=== PATIENT | male | born 1990 ===

== ENCOUNTER 2024-06-20 18:32 | Emergency (ER) | payer BC ==
[2024-06-20] MEDS ORDERED: Sodium Chloride 0.9% 10 ML Syringe FLUSH PRN (18:35)
[2024-06-20] MEDS ORDERED: fentaNYL 100 MCG/2 ML SDV IVPUSH ONE (18:35)
[2024-06-20 18:44] LABS: BASOPHILS ABSOLUTE AUTO 0.04 K/uL (0.00-0.20); BASOPHILS PERCENT AUTO 0.5 % (0.0-2.0); EOSINOPHILS ABSOLUTE AUTO 0.48 K/uL (0.00-0.50); EOSINOPHILS PERCENT AUTO 5.8 % (0.0-5.0); HEMOGLOBIN 13.1 g/dL (13.1-16.8); LYMPHOCYTES ABSOLUTE AUTO 2.61 K/uL (0.50-3.50); LYMPHOCYTES PERCENT AUTO 31.7 % (10.0-50.0); MEAN CORPUSCULAR HEMOGLOBIN 30.3 pg (28.2-33.3); MEAN CORPUSCULAR HGB CONC 33.6 g/dL (31.7-36.0); MEAN CORPUSCULAR VOLUME 90.3 fL (84.0-98.0); MONOCYTES ABSOLUTE AUTO 0.65 K/uL (0.00-1.00); MONOCYTES PERCENT AUTO 7.9 % (2.0-14.0); NEUTROPHILS ABSOLUTE AUTO 4.45 K/uL (1.40-7.00); NEUTROPHILS PERCENT AUTO 54.1 % (45.0-80.0); PLATELET COUNT,PLT 310 K/uL (150-350); RED BLOOD CELL COUNT 4.32 M/uL (4.33-5.41); WHITE BLOOD CELL COUNT,WBC 8.2 K/uL (4.0-10.2)
[2024-06-20 19:02] LABS: ALANINE AMINOTRANSFERASE,ALT 37 U/L (12-78); ALBUMIN 3.8 g/dL (3.4-5.0); ALKALINE PHOSPHATASE 83 IU/L (46-116); ANION GAP 9.6 meq/L (7-15); ASPARTATE AMNIOTRANSFERASE,AST 20 U/L (15-37); BILIRUBIN TOTAL 0.4 mg/dL (0.2-1.0); BLOOD UREA NITROGEN,BUN 9 mg/dL (7-18); CALCIUM 8.9 mg/dL (8.5-10.1); CARBON DIOXIDE,CO2 26.4 mmol/L (21.0-32.0); CHLORIDE,CL 101 mmol/L (98-107); CREATININE 1.06 mg/dL (0.51-1.17); ESTIMATED GFR 95 mL/min (>=60); ETHANOL BLOOD MEDICAL 0.071 g/dL (0.000-0.080); GLUCOSE RANDOM 104 mg/dL (70-99); POTASSIUM,K 3.7 mmol/L (3.5-5.1); PROTEIN TOTAL,TP 6.8 g/dL (6.4-8.2); SODIUM,NA 137 mmol/L (136-145)
[2024-06-20 19:04] LABS: PROTHROMBIN TIME 9.7 SEC (9.0-11.1)
[2024-06-20] MEDS ORDERED: fentaNYL 50 MCG/ML SDV IVPUSH ONE (19:55)
[2024-06-20] MEDS ORDERED: Ketorolac 15 MG/ML SDV IVPUSH ONE (22:08)
== END 2024-06-20 22:21 ==
LOC: LL.ED 18:32
DX: S52.371A Galeazzi's fracture of right radius, initial encounter for closed fracture (principal); V86.65XA Passenger of 3- or 4- wheeled all-terrain vehicle (ATV) injured in nontraffic accident, initial encounter
CPT/HCPCS: 36415; 71045; 72125; 72170; 73090-RT; 80053; 80307; 85025; 85610; 99285; J1885; J3010